=== PATIENT | female | born 1980 | race Caucasian/White ===

== ENCOUNTER 2017-01-04 15:00 | Emergency (ER) | payer SELFPAY ==
[2017-01-04 15:20] VITALS: BP 145/86
[2017-01-04] MEDS ORDERED: Ketorolac 60 MG/2 ML SDV IM ONE (15:25)
--- NOTE | 2017-01-04 15:29 | EDM.PDOC ---
[id number] 4d MIGRAINE Time Seen by Provider: 01/04/17 15:20 Source: Reports: Patient History Limitations: Reports: No limitations - History of Present Illness INITIAL COMMENTS - FREE TEXT/NARRATIVE: 36-year-old female with chronic recurring headaches usually responds well to IM Toradol when she has breakthrough headaches not responding to her home medications. She has tried her usual abortive meds and was unsuccessful. She vomited once in route to the hospital. No fevers or chills, no significant difference in this headache than past headaches. Location: Reports: frontal, temporal, left, eye, left Quality: Reports: pounding Severity: Reports: moderate - Related Data Allergies/ADRs: Allergies Allergy/AdvReac Type Severity Reaction Status Date / Time No Known Allergies Allergy Verified 01/04/17 15:12 Home Meds: Home Meds traZODone 50 mg PO BEDTIME 08/21/14 [History] LORazepam [Take Home: LORazepam 0.5 MG, 2 Tab Pack] 0.5 mg PO Q46H PRN 05/11/16 [History] Levothyroxine Sodium [Levothyroxine Sodium] 25 mcg PO QAM 05/11/16 [History] [place] Carbonate [[place] Carbonate] 600 mg PO BEDTIME 05/11/16 [History] Ranitidine HCl [Ranitidine] 150 mg PO DAILY 05/11/16 [History] SUMAtriptan Succinate [Sumatriptan Succinate] 100 mg PO ASDIRECTED PRN 05/11/16 [History] Venlafaxine [Venlafaxine HCl ER] 150 mg PO DAILY 05/11/16 [History] Zolpidem Tartrate [Zolpidem Tartrate] 5 mg PO BEDTIME 05/11/16 [History] Ondansetron [Zofran ODT] 4 mg PO Q6H PRN #10 tab.dis 10/03/16 [Rx] Past Medical History Gastrointestinal History: Reports: GERD 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 Denies: Abdominal pain Musculoskeletal: Reports: no symptoms Skin: Reports: no symptoms Neurological: Reports: Headache - Physical Exam Exam: See Below Exam Limited By: No limitations General Appearance: alert, mild distress (Looks uncomfortable) Eye Exam: bilateral eye: EOMI Respiratory/Chest: no respiratory distress Neuro Exam (Abbreviated): alert, oriented, no motor/sensory deficits (Grossly normal, able to ambulate with no obvious asymmetries) Course - Vital Signs Last Recorded V/S: Last Vital Signs Temp 98.6 F 01/04/17 15:18 Pulse 69 01/04/17 15:18 Resp 14 01/04/17 15:18 BP 145/86 H 01/04/17 15:18 Pulse Ox 97 01/04/17 15:18 - Orders/Labs/Meds Meds: Medications Discontinued Medications Generic Name Dose Route Start Last Admin Trade Name Jed PRN Reason Stop Dose Admin Ketorolac Tromethamine 60 mg 01/04/17 15:25 01/04/17 15:43 Toradol IM 01/04/17 15:26 60 mg ONETIME ONE Administration - Re-Assessments/Exams Free Text/Narrative Re-Assessment/Exam: 01/04/17 15:28 Patient was given 60 mg of IM Toradol. 01/04/17 16:18 After 30 minutes patient was markedly improved. Was discharged without any further treatment. Departure - Departure Time of Disposition: 16:51 Disposition: Home, Self-Care 01 Condition: good Clinical Impression: Migraine Headache Qualifiers: Headache chronicity pattern: episodic headache Intractability: not intractable Instructions: Migraine Headache, [id number] Referrals: Jake Davila MD [Primary Care Provider] - Forms: ED Department Discharge Care Plan Goals: Rest today, continue your regular medications and return if worsening or concerns.
== END 2017-01-04 16:52 | disposition home or self-care (01) ==
LOC: JP.ED 15:00
DX: G43.909 Migraine, unspecified, not intractable, without status migrainosus (principal); K21.9 Gastro-esophageal reflux disease without esophagitis; F32.9 Major depressive disorder, single episode, unspecified; F41.9 Anxiety disorder, unspecified; E03.9 Hypothyroidism, unspecified; Z98.890 Other specified postprocedural states
CPT/HCPCS: 96372; 99283; J1885

== ENCOUNTER 2018-02-16 22:55 | Emergency (ER) | payer SELFPAY | END 2018-02-16 23:59 | disposition left against medical advice (07) | LOC: JP.ED 22:55 | DX: Z53.21 Procedure and treatment not carried out due to patient leaving prior to being seen by health care provider (principal) ==

== ENCOUNTER 2018-06-10 08:45 | Emergency (ER) | payer MEDICAID ==
[2018-06-10 09:10] VITALS: BP 138/73
--- NOTE | 2018-06-10 09:20 | EDM.PDOC ---
ED HPI GENERAL MEDICAL PROBLEM - General Chief Complaint: ENT Problem Stated Complaint: TONSILITITS GETTING WORSE Time Seen by Provider: 06/10/18 09:18 Source of Information: Reports: Patient History Limitations: Reports: No Limitations - History of Present Illness INITIAL COMMENTS - FREE TEXT/NARRATIVE: pt was seen at the clinic yesterday and was placed on a zpack. She had a neg strept at the clinic. Onset: Gradual, Other (last 3-4 days. ) Duration: Hour(s): Location: Reports: Neck Associated Symptoms: Reports: Diaphoresis, Fever/Chills - Related Data Allergies Allergy/AdvReac Type Severity Reaction Status Date / Time No Known Allergies Allergy Verified 01/04/17 15:12 Home Meds: Home Meds traZODone 50 mg PO BEDTIME 08/21/14 [History] LORazepam [Take Home: LORazepam 0.5 MG, 2 Tab Pack] 0.5 mg PO Q46H PRN 05/11/16 [History] Levothyroxine Sodium 25 mcg PO QAM 05/11/16 [History] [place] Carbonate 400 mg PO BEDTIME 05/11/16 [History] Ranitidine HCl [Ranitidine] 150 mg PO DAILY 05/11/16 [History] SUMAtriptan succinate [Sumatriptan Succinate] 100 mg PO ASDIRECTED PRN 05/11/16 [History] Venlafaxine [Venlafaxine HCl ER] 225 mg PO DAILY 05/11/16 [History] Zolpidem Tartrate 5 mg PO BEDTIME 05/11/16 [History] Past Medical History Gastrointestinal History: Reports: GERD 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: , 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 (See Below) Other JOINER HELPER History: 5 miscarrages Neurological History: Reports: Migraines Psychiatric History: Reports: ADHD, Anxiety, Depression Endocrine/Metabolic History: Reports: Hypothyroidism - Infectious Disease History Infectious Disease History: Reports: Chicken Pox - Past Surgical History Female Surgical History: Reports: Section Social & Family History - Tobacco Use Smoking Status *Q: Former Smoker Years of Tobacco use: 3 Packs/Tins Daily: 0.5 Used Tobacco, but Quit: Yes Month/Year Tobacco Last Used: 09/2004 - Caffeine Use Caffeine Use: Reports: Soda - Recreational Drug Use Recreational Drug Use: No ED ROS ENT - Review of Systems Review Of Systems: See Below Constitutional: Reports: Fever, Chills, Malaise, Weakness, Decreased Appetite HEENT: Reports: Throat Pain, Throat Swelling Respiratory: Reports: No Symptoms Cardiovascular: Reports: No Symptoms Endocrine: Reports: No Symptoms GI/Abdominal: Reports: No Symptoms : Reports: No Symptoms Musculoskeletal: Reports: No Symptoms Skin: Reports: No Symptoms Neurological: Reports: No Symptoms ED EXAM, ENT - Physical Exam Exam: See Below Text/Narrative:: pt arrived with a markedly sore throat which is worse than . She was given zithromax yesterday. She is getting fluids down but it is difficult. Exam Limited By: No Limitations General Appearance: Alert, Anxious, Moderate Distress Ears: Normal TMs Nose: Normal Inspection Mouth/Throat: Throat Pain, Throat Swelling, Tonsillar Erythema, Other (pt has alot of exudate present) Head: Atraumatic Neck: Lymphadenopathy (R), Lymphadenopathy (L) Respiratory/Chest: No Respiratory Distress Cardiovascular: Regular Rate, Rhythm, Tachycardia GI/Abdominal: Soft, Non-Tender (Female) Exam: Deferred Rectal (Female) Exam: Deferred Back: Normal Inspection Extremities: Normal Inspection Neurological: Alert, Normal Cognition Psychiatric: Normal Affect Course - Vital Signs Last Recorded V/S: Last Vital Signs Temp 38.1 C 06/10/18 09:09 Pulse 107 H 06/10/18 09:09 Resp 16 06/10/18 09:09 BP 138/73 06/10/18 09:09 Pulse Ox 99 06/10/18 09:09 - Orders/Labs/Meds Orders: Active Orders 24 hr Category Date Time Status CULTURE STREP A CONFIRMATION [] Stat Lab 06/10/18 09:28 Results STREP SCRN A RAPID W CULT CONF [] Stat Lab 06/10/18 09:28 Ordered Labs: Laboratory Tests 06/10/18 06/10/18 06/10/18 Range/Units 09:27 09:27 09:27 WBC 17.4 H (4.5-11.0) K/uL RBC 4.59 (3.30-5.50) M/uL Hgb 13.5 (12.0-15.0) g/dL Hct 41.0 (36.0-48.0) % MCV 89 (80-98) fL MCH 29 (27-31) pg MCHC 33 (32-36) % Plt Count 264 (150-400) K/uL Neut % (Auto) 86 H (36-66) % Lymph % (Auto) 7 L (24-44) % [place] % (Auto) 6 (2-6) % Eos % (Auto) 1 L (2-4) % Baso % (Auto) 0 (0-1) % Sodium 135 L (140-148) mmol/L Potassium 4.0 (3.6-5.2) mmol/L Chloride 101 (100-108) mmol/L Carbon Dioxide 26 (21-32) mmol/L Anion Gap 12.0 (5.0-14.0) mmol/L BUN 9 (7-18) mg/dL Creatinine 1.1 H (0.6-1.0) mg/dL Est Cr Clr Drug Dosing TNP Estimated GFR (MDRD) 56 L (>60) Glucose 130 H (74-106) mg/dL Calcium 9.5 (8.5-10.1) mg/dL Monoscreen Negative (NEGATIVE) - Re-Assessments/Exams Free Text/Narrative Re-Assessment/Exam: 06/10/18 10:03 pt was given torodol, rocephen, and a liter of fluids. Departure - Departure Time of Disposition: 10:03 Disposition: Home, Self-Care 01 Condition: Fair Clinical Impression: Acute bacterial pharyngitis - Discharge Information Referrals: Jake Davila MD [Primary Care Provider] - Forms: ED Department Discharge Care Plan Goals: push fluids, norco 5/325 q6h prn for pain #6, cont zithromax. Rtc tomorrow for 1 more gram of rocephen. - My Orders Last 24 Hours: My Active Orders 06/10/18 09:28 CULTURE STREP A CONFIRMATION [RM] Stat STREP SCRN A RAPID W CULT CONF [RM] Stat - Assessment/Plan Last 24 Hours: My Active Orders 06/10/18 09:28 CULTURE STREP A CONFIRMATION [RM] Stat STREP SCRN A RAPID W CULT CONF [RM] Stat
[2018-06-10] MEDS ORDERED: cefTRIAXone 1 GM in Sodium Chloride 0.9% 50 ML IV ONE (09:58)
[2018-06-10] MEDS: Sodium Chloride 0.9% 1,000 ML IV SCH ×2 (10:02→10:43)
[2018-06-10] MEDS ORDERED: Ketorolac 30 MG/ML SDV IVPUSH ONE (10:06)
== END 2018-06-10 12:18 | disposition home or self-care (01) ==
LOC: JP.ED 08:45
DX: J02.8 Acute pharyngitis due to other specified organisms (principal); B96.89 Other specified bacterial agents as the cause of diseases classified elsewhere; Z87.891 Personal history of nicotine dependence
CPT/HCPCS: 36415; 80048; 85025; 86308; 87081; 87430; 96361; 96365; 96375; 99283; J0696; J1885; J7030; J7050

== ENCOUNTER 2019-09-21 03:55 | Emergency (ER) | payer MEDICAID ==
[2019-09-21] MEDS ORDERED: Prochlorperazine 10 MG/2 ML SDV IVPUSH ONE (04:36)
[2019-09-21] MEDS ORDERED: Ketorolac 30 MG/ML SDV IVPUSH ONE (04:37)
[2019-09-21] MEDS ORDERED: diphenhydrAMINE 50 MG/ML SDV IVPUSH ONE (04:38)
--- NOTE | 2019-09-21 04:44 | EDM.PDOC ---
ED HPI GENERAL MEDICAL PROBLEM - General Chief Complaint: Headache Stated Complaint: MIGRANE Time Seen by Provider: 09/21/19 04:39 Source of Information: Reports: Patient History Limitations: Reports: No Limitations - History of Present Illness INITIAL COMMENTS - FREE TEXT/NARRATIVE: pt arrived with a headache which started yesterday. She tried imitrex and excedrin. She casn usually handle these at home. She has been vomiting today. Onset: Other ( started . ) Duration: Hour(s): Location: Reports: Head Associated Symptoms: Reports: Nausea/Vomiting Headache Pain Score (Numeric/FACES): 5 - Related Data Allergies Allergy/AdvReac Type Severity Reaction Status Date / Time No Known Allergies Allergy Verified 09/21/19 04:15 Home Meds: Home Meds traZODone 50 mg PO BEDTIME 08/21/14 [History] LORazepam [Take Home: LORazepam 0.5 MG, 2 Tab Pack] 0.5 mg PO Q46H PRN 05/11/16 [History] Levothyroxine Sodium 25 mcg PO QAM 05/11/16 [History] [place] Carbonate 400 mg PO BEDTIME 05/11/16 [History] Ranitidine HCl [Ranitidine] 150 mg PO DAILY 05/11/16 [History] SUMAtriptan succinate [Sumatriptan Succinate] 100 mg PO ASDIRECTED PRN 05/11/16 [History] Venlafaxine [Venlafaxine HCl ER] 225 mg PO DAILY 05/11/16 [History] Zolpidem Tartrate 5 mg PO BEDTIME 05/11/16 [History] Past Medical History Gastrointestinal History: Reports: GERD 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: , 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 , Other (See Below) Other CORE MAN History: 5 miscarrages Neurological History: Reports: Migraines Psychiatric History: Reports: ADHD, Anxiety, Depression Endocrine/Metabolic History: Reports: Hypothyroidism - Infectious Disease History Infectious Disease History: Reports: Chicken Pox - Past Surgical History Female Surgical History: Reports: Section, Tubal Ligation Social & Family History - Tobacco Use Smoking Status *Q: Never Smoker Second Hand Smoke Exposure: No - Caffeine Use Caffeine Use: Reports: Soda - Alcohol Use Days Per Week of Alcohol Use: 0 - Recreational Drug Use Recreational Drug Use: No ED ROS GENERAL - Review of Systems Review Of Systems: See Below Constitutional: Reports: No Symptoms HEENT: Reports: No Symptoms Respiratory: Reports: No Symptoms Cardiovascular: Reports: No Symptoms Endocrine: Reports: No Symptoms GI/Abdominal: Reports: No Symptoms, Nausea, Vomiting : Reports: No Symptoms Musculoskeletal: Reports: Muscle Stiffness, Other ( neck stiffness. ) - Physical Exam Exam: See Below Text/Narrative:: pt has a head which is going accross the back of her head. General Appearance: Alert Ears: Normal TMs Nose: Normal Inspection Throat/Mouth: Normal Inspection Head Exam: Atraumatic Neck: Tender Lateral Respiratory/Chest: No Respiratory Distress Cardiovascular: Regular Rate, Rhythm GI/Abdominal: Soft, Non-Tender (Female) Exam: Deferred Rectal (Female) Exam: Deferred Neuro Exam (Abbreviated): Alert, Oriented, Normal Cognition Back Exam: Normal Inspection Extremities: Normal Inspection Psychiatric: Normal Affect Course - Vital Signs Last Recorded V/S: Last Vital Signs Temp 36.6 C 09/21/19 06:43 Pulse 72 09/21/19 06:43 Resp 16 09/21/19 06:43 BP 113/45 L 09/21/19 06:43 Pulse Ox 98 09/21/19 06:43 - Orders/Labs/Meds Orders: Active Orders 24 hr Category Date Time Status Sodium Chloride 0.9% [Normal Saline] 1,000 ml Med 09/21/19 04:45 Active IV ASDIRECTED Medication Orders Sodium Chloride (Normal Saline) 1,000 mls @ 999 mls/hr IV ASDIRECTED ANNA Last Admin: 09/21/19 04:58 Dose: 999 mls/hr Meds: Medications Generic Name Dose Route Start Last Admin Trade Name Freq PRN Reason Stop Dose Admin Sodium Chloride 1,000 mls @ 999 mls/hr 09/21/19 04:45 09/21/19 04:58 Normal Saline IV 999 mls/hr ASDIRECTED ANNA Administration Discontinued Medications Generic Name Dose Route Start Last Admin Trade Name Freq PRN Reason Stop Dose Admin Diphenhydramine HCl 50 mg 09/21/19 04:38 09/21/19 05:02 Benadryl IVPUSH 09/21/19 04:39 50 mg ONETIME ONE Administration Ketorolac Tromethamine 30 mg 09/21/19 04:37 09/21/19 05:04 Toradol IVPUSH 09/21/19 04:38 30 mg ONETIME ONE Administration Prochlorperazine Edisylate 10 mg 09/21/19 04:36 09/21/19 05:00 Compazine IVPUSH 09/21/19 04:37 10 mg ONETIME ONE Administration - Re-Assessments/Exams Free Text/Narrative Re-Assessment/Exam: 09/21/19 06:49 pt was given benadry, compazine and tordol. Her headache is now gone. She feels she could go home and rest. Departure - Departure Time of Disposition: 06:50 Disposition: Home, Self-Care 01 Condition: Fair Clinical Impression: Migraine - Discharge Information Referrals: Jake Davila MD [Primary Care Provider] - Forms: ED Department Discharge Care Plan Goals: push fluids, low activity--try to rest. rtc if problems. - My Orders Last 24 Hours: My Active Orders 09/21/19 04:45 Sodium Chloride 0.9% [Normal Saline] 1,000 ml IV ASDIRECTED - Assessment/Plan Last 24 Hours: My Active Orders 09/21/19 04:45 Sodium Chloride 0.9% [Normal Saline] 1,000 ml IV ASDIRECTED
[2019-09-21] MEDS ORDERED: Sodium Chloride 0.9% 1,000 ML IV SCH (04:45)
[2019-09-21 06:44] VITALS: BP 113/45; PULSE 72
== END 2019-09-21 06:59 | disposition home or self-care (01) ==
LOC: JP.ED 03:55
DX: G43.909 Migraine, unspecified, not intractable, without status migrainosus (principal); K21.9 Gastro-esophageal reflux disease without esophagitis; F41.9 Anxiety disorder, unspecified; F32.9 Major depressive disorder, single episode, unspecified; E03.9 Hypothyroidism, unspecified; Z79.899 Other long term (current) drug therapy
CPT/HCPCS: 96361; 96374; 96375; 99284; J0780; J1200; J1885; J7030

== ENCOUNTER 2020-09-02 20:19 | Emergency (ER) | payer MEDICAID ==
[2020-09-02 20:43] VITALS: BP 128/67; PULSE 67
--- NOTE | 2020-09-02 21:12 | EDM.PDOC ---
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 However over the past several hours her son is developed a fever, nasal congestion and there is a concern he may have Covid. She brought him in for a test and wants to be tested as well, she has no symptoms currently. Associated Symptoms: Reports: No Other Symptoms - Related Data Allergies Allergy/AdvReac Type Severity Reaction Status Date / Time No Known Allergies Allergy Verified 09/02/20 20:47 Home Meds: Home Meds traZODone 50 mg PO BEDTIME 08/21/14 [History] LORazepam [Take Home: LORazepam 0.5 MG, 2 Tab Pack] 0.5 mg PO Q46H PRN 05/11/16 [History] Levothyroxine Sodium 25 mcg PO QAM 05/11/16 [History] [place] Carbonate 400 mg PO BEDTIME 05/11/16 [History] Ranitidine HCl [Ranitidine] 150 mg PO DAILY 05/11/16 [History] SUMAtriptan succinate [Sumatriptan Succinate] 100 mg PO ASDIRECTED PRN 05/11/16 [History] Venlafaxine [Venlafaxine HCl ER] 225 mg PO DAILY 05/11/16 [History] Zolpidem Tartrate 5 mg PO BEDTIME 05/11/16 [History] Amoxicillin 500 mg PO BID 09/02/20 [History] Neomycin/Polymyxin B Sulf/HC [Rmcqvhjw-Sajgsqrzs-Es Ear Soln] 5 drop OT QID 09/02/20 [History] Past Medical History Gastrointestinal History: Reports: GERD 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: , 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 , Other (See Below) 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: 5 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 Neurological History: Reports: Migraines Psychiatric History: Reports: ADHD, Anxiety, Depression Endocrine/Metabolic History: Reports: Hypothyroidism - Infectious Disease History Infectious Disease History: Reports: Chicken Pox - Past Surgical History Female Surgical History: Reports: Section, Tubal Ligation Social & Family History - Tobacco Use Tobacco Use Status *Q: Never Tobacco User - Caffeine Use Caffeine Use: Reports: Soda - Recreational Drug Use Recreational Drug Use: No ED ROS GENERAL - Review of Systems Review Of Systems: See Below Constitutional: Denies: Fever, Chills, Malaise HEENT: Reports: Ear Pain (Evaluated yesterday and started on antibiotics) Respiratory: Reports: No Symptoms GI/Abdominal: Reports: No Symptoms Neurological: Denies: Headache ED EXAM, GENERAL - Physical Exam Exam: See Below Exam Limited By: No Limitations General Appearance: Alert, No Apparent Distress Respiratory/Chest: No Respiratory Distress Neurological: Alert, Oriented Psychiatric: Normal Affect, Normal Mood Skin Exam: Warm, Dry Course - Vital Signs Last Recorded V/S: Last Vital Signs Temp 98.7 F 09/02/20 20:50 Pulse 67 09/02/20 20:50 Resp 14 09/02/20 20:50 BP 128/67 09/02/20 20:50 Pulse Ox 96 09/02/20 20:50 - Orders/Labs/Meds Orders: Active Orders 24 hr Category Date Time Status CORONAVIRUS COVID-19, JULIET Stat Lab 09/02/20 21:20 Received - Re-Assessments/Exams Free Text/Narrative Re-Assessment/Exam: 09/02/20 21:11 A Covid test was obtained as well as a test for her son, results will be available in a few days. She can return anytime if worsening or concerns. Departure - Departure Time of Disposition: 21:26 Disposition: Home, Self-Care 01 Clinical Impression: Exposure to COVID-19 virus - Discharge Information Instructions: Contact Precautions, [id number] Referrals: Jake Davila MD [Primary Care Provider] - Forms: ED Department Discharge Care Plan Goals: Quarantine until test results are available next week, return anytime if worsening such as difficulty breathing Sepsis Event Note (ED) - Evaluation Sepsis Screening Result: No Definite Risk - Focused Exam Vital Signs: Vital Signs Temp Pulse Resp BP Pulse Ox 09/02/20 20:50 98.7 F 67 14 128/67 96 09/02/20 20:42 98.7 F 67 14 128/67 96 - My Orders Last 24 Hours: My Active Orders 09/02/20 21:20 CORONAVIRUS COVID-19, JULIET Stat - Assessment/Plan Last 24 Hours: My Active Orders 09/02/20 21:20 CORONAVIRUS COVID-19, JULIET Stat
== END 2020-09-02 21:26 | disposition home or self-care (01) ==
LOC: JP.ED 20:19
DX: H92.09 Otalgia, unspecified ear (principal); K21.9 Gastro-esophageal reflux disease without esophagitis; F41.9 Anxiety disorder, unspecified; F32.9 Major depressive disorder, single episode, unspecified; F90.9 Attention-deficit hyperactivity disorder, unspecified type; E03.9 Hypothyroidism, unspecified; Z79.899 Other long term (current) drug therapy; Z20.828 Contact with and (suspected) exposure to other viral communicable diseases
CPT/HCPCS: 99283; U0002

== ENCOUNTER 2022-06-08 14:43 | Emergency (ER) | payer BC, MEDICAID | END 2022-06-08 15:55 | disposition left against medical advice (07) | LOC: JP.ED 14:43 | DX: Z53.21 Procedure and treatment not carried out due to patient leaving prior to being seen by health care provider (principal) ==

== ENCOUNTER 2022-11-13 06:18 | Day surgery (SDC) | payer BC ==
[2022-11-13] MEDS ORDERED: Lactated Ringers 1,000 ML IV SCH (06:30)
[2022-11-13] MEDS ORDERED: Acetaminophen 500 MG Tab PO ONE (06:30)
[2022-11-13] MEDS ORDERED: Bupivacaine 0.5%/EPINEPHrine 1:200,000 50 ML MDV ONE (06:44)
[2022-11-13] MEDS ORDERED: Lidocaine 1% 50 ML MDV ONE (06:44)
[2022-11-13] MEDS ORDERED: fentaNYL 100 MCG/2 ML SDV ONE (07:22)
[2022-11-13] MEDS ORDERED: Propofol 200 MG/20 ML SDV ONE ×3 (07:22→08:14)
[2022-11-13] MEDS ORDERED: Midazolam 1 MG/ML 2 ML SDV ONE (07:22)
[2022-11-13] MEDS ORDERED: Lidocaine 1% with EPINEPHrine 1:100,000 50 ML MDV ONE (07:55)
[2022-11-13 10:18] VITALS: BP 105/66; PULSE 52
== END 2022-11-13 10:00 | disposition home or self-care (01) ==
LOC: JP.SDS 06:18
PROVIDERS: ATTEND Student in an Organized Health Care Education/Training Program
DX: D22.30 Melanocytic nevi of unspecified part of face (principal); R22.1 Localized swelling, mass and lump, neck; F90.9 Attention-deficit hyperactivity disorder, unspecified type; F32.A Depression, unspecified; E66.9 Obesity, unspecified; E78.2 Mixed hyperlipidemia; G43.109 Migraine with aura, not intractable, without status migrainosus; F41.1 Generalized anxiety disorder; E03.9 Hypothyroidism, unspecified; E11.9 Type 2 diabetes mellitus without complications; Z98.890 Other specified postprocedural states; Z79.890 Hormone replacement therapy; Z87.891 Personal history of nicotine dependence; Z88.0 Allergy status to penicillin; Z88.2 Allergy status to sulfonamides; Z79.899 Other long term (current) drug therapy; Z68.32 Body mass index [BMI] 32.0-32.9, adult
CPT/HCPCS: 11422; 11441; 12041; 12051; 88304; 88305; A9270; J2250; J2704; J3010; J7120; J2001; J3490